=== PATIENT | female | born 1950 | race Caucasian/White ===

== ENCOUNTER 2022-01-27 13:35 | Outpatient (RCR) | payer MEDICARE, BC, SELFPAY | END 2022-01-28 23:59 | disposition home or self-care (01) | LOC: CCIC 13:35 | PROVIDERS: PCP Family Medicine; Visit Provider Internal Medicine Hematology & Oncology | DX: C50.912 Malignant neoplasm of unspecified site of left female breast (principal); Z17.0 Estrogen receptor positive status [ER+]; Z79.810 Long term (current) use of selective estrogen receptor modulators (SERMs); M81.0 Age-related osteoporosis without current pathological fracture | CPT/HCPCS: 99212; 99214 ==

== ENCOUNTER 2022-06-01 11:17 | Outpatient (RCR) | payer MEDICARE, BC, SELFPAY ==
[2022-06-01 13:16] LABS: Ferritin* 64.6 ng/mL (11.1-264.0)
== END 2022-11-28 23:59 | disposition home or self-care (01) ==
LOC: CCIC 11:17
PROVIDERS: PCP Family Medicine; Visit Provider Internal Medicine Hematology & Oncology
DX: L65.9 Nonscarring hair loss, unspecified (principal); Z17.0 Estrogen receptor positive status [ER+]; Z79.810 Long term (current) use of selective estrogen receptor modulators (SERMs)
CPT/HCPCS: 36415; 82728; 84443; 99212; 99214

== ENCOUNTER 2022-06-08 10:46 | Outpatient (RCR) | payer MEDICARE, BC, SELFPAY ==
--- NOTE | 2022-06-08 12:20 | OT.OPLE ---
OT Outpatient Lymphedema Eval OT Outpatient Lymphedema Eval Start: 06/08/22 07:27 Freq: Status: Discharge Protocol: Document 06/08/22 07:28 AMB (Rec: 06/08/22 11:45 AMB [id number]) E-signed By Laurita Mitchell, OTR/L, CLT, HAND HEEL SEAT FITTER OT Outpatient Evaluation Details Type Type Eval Complexity Low OT OP Lymphedema Evaluation Insurance Information Insurance Information Medicare B Current Condition/Medical Diagnosis Referring Provider Ara Treatment Diagnosis Lymphedema left chest wall Date Of Onset 06/05/21 Medical Contraindications CA,Osteoporosis Current Work Status Current Work Status Retired Subjective Subjective Pt states she is returning today for an 12 month re- assessment and to review lymphedema education that she received at previous visits. Pt denies any symptoms of lymphedema and expresses how pleased she is with the outcomes. Pt states her scar is no longer causing any pain or swelling. Pt has recently had to reduce her dose of Tamoxifen as it was causing her to loose her hair, but otherwise she feels she is doing great. Medical History Medical History Cancer Treatment/Surgery Medical History Comments Pt is 71yo female referred to OT for lymphedema screening / surveillance and pt education following her 06/05/21 mastectomy. 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 Original diagnosis occured in May of 2021 as a result of findings from a mammogram. Current treatment plan includes tamoxifen. Pt was referred to OT secondary to scar tissue, axillary cording and some residual swelling on the chest wall. Pt will continue with annual mammogram for the right breast and will recheck with oncology prn. PMH includes osteoporosis, rosacea, raynaud's disease, PSH includes mastectomy and cornea transplant in August of 2016. 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 Surgical History Surgical History See above Medications Medications See chart Family History Family History of Lymphedema No Living Situation Current Living Situation Home With Spouse Or SO Exercise History Does Patient Exercise Regularly Yes Exercise Comments Pt enjoys walking and hiking. Pain Pain No Loss of Function/Strength/Mobility Loss Of Function/Strength/Mobility No Loss Of Function/Strength/Mobility Pt demonstrates AROM of BUE to Comments be WNL, 5/5 MMT BUE as well. Previous Treatment Previous Treatment For Swelling/ MLD,Compression Garment,Multi- Lymphedema Layer Compression Bandages, Exercise,Self Massage Previous Treatment/Current Home Program Compression, exercise, self MLD and scar mobilization. Compression History Does Patient Currently Wear Compression No During Daytime Does Patient Currently Wear Compression No At Night Current Swelling (Location/Pitting/Texture) Pitting Scale: 0 = No pitting 1+ Tissue returns to normal almost immediately 2+ Tissue returns after 15-30 seconds 3+ Tissue returns after 1-1/2 minutes 4+ Tissue returns after 2-3 minutes N/A Tissue no longer pits due to induration Tissue texture: Soft or indurated Clinical Presentation Area Initially, pt demonstrated lymphedema in her left chest wall, currently, lymphedema appears to have completely resolved, pt has not noted any swelling since her last visit in November. Staging Staging Stage 0 Assessment Assessment Pt was seen in OT for lymphedema of her left chest wall from July of 2021 through November of 2021 and received compression, MLD, scar mobilization and exercise . Pt is very pleased with the outcomes, has not noted swelling since. Pt returns today for final a re- assessment of her BUE and final visit of lymphedema surveillance program. Measurements were taken of BUE as follows: RUE LUE Met heads 19.0cm 18.3cm Palm 18.2 17.5 Wrist 16.0 15.8 10cm 16.2 16.0 20cm 21.6 20.6 30cm 19.8 19.3 40cm 22.0 21.8 50cm 23.5 23.5 Measurements are relatively unchanged and fairly symmetrical. No evidence of lymphedema present in either UE or chest wall. Incision is well healed, minimal adherence noted. Impairments Impairments Comments Initially, pt had significant swelling of her left anterior chest wall, this has resolved. Problem List Problem List Limited Knowledge of Lymphedema Treatment/Condition /Precautions,Limited Knowledge of Skin Care & Infection Precautions Patient Goals Patient Goals 1. Re-assessment and finalization of lymphedema surveillance program. This goal was met today. Treatment Plan Treatment Plan Evaluation Expected Frequency 1 visit Certification Certification I Certify That: Therapy Services Provided, Therapy Plan Established, Therapy Plan Reviewed Recertification Information Recertification Information Initial Certification Date 06/08/22 Recertification Due Date 06/09/22 Rehabilitation Potential Good Continued Plan of Care and Interventions Pt will continue with self monitoring and risk reduction practices. Provider Signature Shows Agreement With POC & Medical Necessity Physician Comment/Change Comment or Changes Physician NPI Number #
== END 2022-06-08 12:04 | disposition home or self-care (01) ==
PROVIDERS: PCP Family Medicine; Visit Provider Family Medicine
DX: I89.0 Lymphedema, not elsewhere classified (principal); Z51.89 Encounter for other specified aftercare
CPT/HCPCS: 97165

== ENCOUNTER 2022-11-15 14:43 | Outpatient (RCR) | payer MEDICARE, BC, SELFPAY | END 2023-05-14 23:59 | disposition home or self-care (01) | LOC: CCIC 14:43 | PROVIDERS: PCP Family Medicine; Visit Provider Internal Medicine Hematology & Oncology | DX: C50.912 Malignant neoplasm of unspecified site of left female breast (principal); Z17.0 Estrogen receptor positive status [ER+]; Z79.810 Long term (current) use of selective estrogen receptor modulators (SERMs); L65.9 Nonscarring hair loss, unspecified; M81.0 Age-related osteoporosis without current pathological fracture | CPT/HCPCS: 99212; 99214 ==

== ENCOUNTER 2023-07-18 07:35 | Outpatient (CLI) | payer MEDICARE, BC, SELFPAY ==
--- NOTE | 2023-07-18 07:45 | CRLHL7_ITS ---
For Patients: As a result of the Century Cures Act, medical imaging exams and procedure reports are released immediately into your electronic medical record. You may view this report before your referring provider. If you have questions, please contact your health care provider. DIGITAL DIAGNOSTIC RIGHT MAMMOGRAM USING TOMOSYNTHESIS AND COMPUTER-AIDED DETECTION INDICATION: 73-year-old female. History of LEFT-sided breast cancer. Prior LEFT mastectomy. Skin lesion central upper RIGHT breast for approximately 6 months at the 12 o`clock position. Follow-up. TECHNIQUE: CC and MLO views were obtained. This digital study was evaluated with the assistance of computer-aided detection. Digital breast tomosynthesis used in interpretation. COMPARISON: 05/08/2021. FINDINGS: Breast Composition: The breast is extremely dense, which limits the sensitivity of mammography. Benign vascular calcifications on the RIGHT. No evidence for suspicious microcalcifications, regions of architecture distortion, or dominant masses. No evidence for focal or diffuse skin thickening. Ultrasound is not recommended at this time. Reportedly the patient may undergo a skin biopsy. Upon visual inspection there is a very tiny reddish spot at the 12 o`clock position 3-4 cm above the nipple. There is no mammographic correlate. These findings were discussed briefly with the patient. IMPRESSION: Negative unilateral RIGHT breast mammogram. Annual mammography is recommended. The skin lesion should be managed as per dermatologic evaluation. BI-RADS Category 1: Negative A lay language report of this examination will be provided to the patient. Dictated by: Patricio Ruggiero MD @07/18/2023 8:46:01 AM jj/Dictated by: Patricio Ruggiero MD @ 07/18/2023 8:45:00 AM (Electronically Signed)
== END 2023-07-18 07:36 | disposition home or self-care (01) ==
LOC: MAMMO 07:36
PROVIDERS: PCP Family Medicine; Visit Provider Physician Assistant
DX: N64.9 Disorder of breast, unspecified (principal); Z85.3 Personal history of malignant neoplasm of breast
CPT/HCPCS: 77065; G0279

== ENCOUNTER 2023-12-14 15:00 | Outpatient (RCR) | payer MEDICARE, BC, SELFPAY | END 2023-12-17 23:59 | disposition home or self-care (01) | LOC: CCIC 15:00 | PROVIDERS: PCP Family Medicine; Visit Provider Internal Medicine Hematology & Oncology | DX: D05.12 Intraductal carcinoma in situ of left breast (principal); Z79.810 Long term (current) use of selective estrogen receptor modulators (SERMs); Z17.1 Estrogen receptor negative status [ER-]; Z90.12 Acquired absence of left breast and nipple; L98.9 Disorder of the skin and subcutaneous tissue, unspecified; L65.9 Nonscarring hair loss, unspecified | CPT/HCPCS: 99212; 99214; G0463 ==

== ENCOUNTER 2024-02-26 13:29 | Emergency (ER) | payer MEDICARE, BC, SELFPAY ==
[2024-02-26] VITALS (10 sets, daily range): BP systolic 79–116; BP diastolic 38–60; PULSE 55–61; RESP 18; TEMP 37.2; O2SAT 97–100; BMI 16.2
--- NOTE | 2024-02-26 13:47 | CRLHL7_ITS ---
For Patients: As a result of the Century Cures Act, medical imaging exams and procedure reports are released immediately into your electronic medical record. You may view this report before your referring provider. If you have questions, please contact your health care provider. INDICATION: Fall. TECHNIQUE: Three views left wrist. IMPRESSION: Mildly impacted dorsally angulated fracture of the distal radial metaphysis with probable extension into the joint in the lunate fossa. Less than 1 mm cortical step-off suggested articular cortex. Ulnar styloid fracture is slightly radially displaced. Osteo throughout its triscaphe joint and 1st carpometacarpal joint. Dictated by Tio Bello MD @ 02/26/2024 2:58:49 PM (Electronically Signed)
--- NOTE | 2024-02-26 13:56 | ED_ITS ---
HPI - General Adult General Chief complaint: Extremity Pain/Injury, Upper Stated complaint: fall, L wrist injury Time Seen by Provider: 02/26/24 13:29 Source: patient Mode of arrival: ambulatory Limitations: no limitations History of Present Illness HPI narrative: 73-year-old female coming in today complaining of wrist pain. Patient was out walking when she tripped and fell on an outstretched hand. She is complaining of pain in the lateral left wrist. She denies hitting her head or losing consciousness. The pain is making her feel lightheaded. Related Data Home Medications ?Medication ?Instructions ?Recorded ?Confirmed acetaminophen 500 mg tablet 500 - 1,000 mg PO Q6H PRN 01/25/22 02/26/24 azelaic acid 15 % topical foam 1 topical BID 01/25/22 12/14/23 cyanocobalamin (vitamin B-12) 1,000 mcg IM ONCE 01/25/22 02/26/24 1,000 mcg/mL injection solution prednisolone acetate 1 % eye ml ophthalmic (eye) 01/25/22 12/14/23 drops,suspension cholecalciferol (vitamin D3) 125 2,000 unit PO QDAY 01/27/22 02/26/24 mcg (5,000 unit) capsule calcium carbonate 600 mg PO QDAY 06/20/23 02/26/24 escitalopram oxalate 5 mg tablet 5 mg PO QDAY 06/20/23 02/26/24 (Lexapro) Previous Rx's ?Medication ?Instructions ?Recorded tamoxifen 10 mg tablet 5 mg (1/2 x 10 mg) PO QDAY #90 tabs 01/30/24 Allergies Allergy/AdvReac Type Severity Reaction Status Date / Time No Known Drug Allergies Allergy Verified 12/14/23 11:58 Review of Systems Status of ROS: Reports: 6 or more systems reviewed and unremarkable except as noted in History and below [facility] Medical History Osteoporosis ?M81.0 - Age-related osteoporosis without current pathological fracture (ICD- 10) Surgical History H/O left mastectomy ?Z90.12 - Acquired absence of left breast and nipple (ICD-10) Social History Smoking Status: Never smoker How often do you have a drink containing alcohol: never AUDIT-C Alcohol total score: 0 Non-prescribed substance use: denies use Exam Narrative: Exam Narrative: Well-nourished well-developed patient in no acute distress. Alert and oriented. Answers questions appropriately. Mood and affect are appropriate. Thoughts are goal oriented and rational. No tangential or magical thinking noted. Patient speaks in full sentences without needing to catch her breath. HEENT: Normocephalic atraumatic. Pupils are equally round reactive to light. Extraocular muscles are intact. Conjunctivae are moist without any icterus noted. Moist mucous membranes. Extremities: The patient has a slightly swollen left wrist with pain over the lateral aspect. She has a normal radial pulse. Normal capillary refill. No br oken skin. No significant deformity noted. Const: Vital Signs, click to edit/add: Vital Signs - 24 hr 02/26/24 13:38 02/26/24 14:22 02/26/24 14:30 Temperature 98.9 F Pulse Rate 58 L 59 L Pulse Rate [Left P ulse Oximeter] 55 L Respiratory Rate 18 Blood Pressure [Ri ght Upper Arm] 79/38 L Pulse Oximetry 100 99 98 Oxygen Delivery Me thod Room Air 02/26/24 14:45 02/26/24 15:00 02/26/24 15:15 Temperature Pulse Rate 61 58 L 58 L Pulse Rate [Left P ulse Oximeter] Respiratory Rate Blood Pressure [Ri ght Upper Arm] Pulse Oximetry 99 99 100 Oxygen Delivery Me thod Course Course ED Course: Xray ordered And showed: Mildly impacted dorsally angulated fracture of the distal radial metaphysis with probable extension into the joint in the lunate fossa. Less than 1 mm cortical step-off suggested articular cortex. Ulnar styloid fracture is slightly radially displaced. Osteo throughout its triscaphe joint and 1st carpometacarpal joint. Patient placed in a sugar-tong splint and sling. Will follow up with Ortho next week. Consult was done with Daylin Muller: in agreement with this plan. Blood pressures were low all she was here. Blood pressure on discharge was 116/60. Patient states that her blood pressure generally run average to low. She is not feeling dizzy or lightheaded. Vital Signs Vital signs: Initial Vital Signs Temperature 98.9 F 02/26/24 13:38 Temperature Source Temporal Artery Scan 02/26/24 13:38 Pulse Rate 55 L 02/26/24 13:38 Pulse Rhythm Regular 02/26/24 13:38 Pulse Strength 3+ Normal 02/26/24 13:38 Respiratory Rate 18 02/26/24 13:38 Blood Pressure 79/38 L 02/26/24 13:38 Blood Pressure Mean 51 L 02/26/24 13:38 Blood Pressure Position Sitting 02/26/24 13:38 Pulse Oximetry 100 02/26/24 13:38 Oxygen Delivery Method Room Air 02/26/24 13:38 Vital Signs Temperature 98.9 F 02/26/24 13:38 Pulse Rate 55 L 02/26/24 13:38 Respiratory Rate 18 02/26/24 13:38 Blood Pressure 79/38 L 02/26/24 13:38 Pulse Oximetry 100 02/26/24 13:38 Oxygen Delivery Method Room Air 02/26/24 13:38 Temperature 98.9 F 02/26/24 13:38 Pulse Rate 58 L 02/26/24 15:15 Respiratory Rate 18 02/26/24 13:38 Blood Pressure 79/38 L 02/26/24 13:38 Pulse Oximetry 100 02/26/24 15:15 Oxygen Delivery Method Room Air 02/26/24 13:38 Medications Administered Medications: Discontinued Medications Generic Name Dose Route Start Last Admin Trade Name Freq PRN Reason Stop Dose Admin Hydrocodone Bitart/Acetaminophen 1 tab 02/26/24 14:34 02/26/24 14:43 Hydrocodone-Acetamin 5-325 Mg 1 Tab PO 02/26/24 14:35 1 tab ONCE ONE Administration Medical Decision Making MDM Narrative Medical decision making narrative: Distal radial and ulnar fracture. Treatment per above. Imaging Data X-ray wrist: Attestation: I have reviewed the pertinent imaging results. Radiologist's impression: INDICATION: Fall. TECHNIQUE: Three views left wrist. IMPRESSION: Mildly impacted dorsally angulated fracture of the distal radial metaphysis with probable extension into the joint in the lunate fossa. Less than 1 mm cortical step-off suggested articular cortex. Ulnar styloid fracture is slightly radially displaced. Osteo throughout its triscaphe joint and 1st carpometacarpal joint. Discharge Plan Discharge Clinical Impression: Traumatic closed displaced fracture of distal end of left radius and ulna Patient Disposition: Home, Self-Care Condition: Stable Additional Instructions: Follow-up with Orthopedics this coming week. Leave splint on at all times. [place] sent to [facility]. The pain medication you will receive does contain Tylenol (acetaminophen). Do not take more than 3000 mg of acetaminophen per day. Prescriptions: No Action prednisolone acetate 1 % drops,suspension ophthalmic (eye) Patient Comments: SHAKE LIQUID AND INSTILL 1 DROP IN LEFT EYE EVERY DAY azelaic acid 15 % foam 1 topical BID cyanocobalamin (vitamin B-12) 1,000 mcg/mL solution 1,000 mcg IM ONCE acetaminophen 500 mg tablet 500 - 1,000 mg PO Q6H PRN Rx Instructions: NO MORE THAN 4000 MG/DAY cholecalciferol (vitamin D3) 125 mcg (5,000 unit) capsule 2,000 unit PO QDAY calcium carbonate 600 mg calcium (1,500 mg) tablet 600 mg PO QDAY escitalopram oxalate [Lexapro] 5 mg tablet 5 mg PO QDAY tamoxifen 10 mg tablet 5 mg PO QDAY Qty: 90 3RF Follow Up/Referrals: Gloria Bullock MD [Primary Care Provider] - Stand Alone Forms: [employer]th Info Instructions
[2024-02-26] MEDS: HYDROCODONE-ACETAMIN 5-325 MG 1 TAB PO (14:43)
== END 2024-02-26 16:05 | disposition home or self-care (01) ==
PROVIDERS: Emergency Provider Family Medicine; PCP Family Medicine
DX: S52.592A Other fractures of lower end of left radius, initial encounter for closed fracture (principal); S52.692A Other fracture of lower end of left ulna, initial encounter for closed fracture; W01.0XXA Fall on same level from slipping, tripping and stumbling without subsequent striking against object, initial encounter
CPT/HCPCS: 73110; 99283; 99284; A9270

== ENCOUNTER 2024-03-02 06:45 | Day surgery (SDC) | payer MEDICARE, BC, SELFPAY ==
[2024-03-02] VITALS (9 sets, daily range): BP systolic 113–132; BP diastolic 59–69; PULSE 53–60; RESP 16; TEMP 16.1–36.7; O2SAT 99–100; BMI 16.7
[2024-03-02] MEDS: LACTATED RINGERS 1000 ML 1,000 ML 100 ML IV (06:50)
--- NOTE | 2024-03-02 07:03 | W.PM.H&PU ---
History & Physical Update History & Physical Update H&P Reviewed and patient assessed: No changes noted
[2024-03-02] MEDS: SODIUM CHLORIDE 0.9 % (FLUSH) 10 ML SYRINGE IVF (07:19)
[2024-03-02] MEDS: fentaNYL 100 MCG/2 ML inj IVP (07:20)
[2024-03-02] MEDS: MIDAZOLAM HCL 1 MG/ML inj IVP (07:20)
--- NOTE | 2024-03-02 07:28 | PM.ORPRC ---
Procedure Note Date of procedure: 03/02/24 Procedure: PREOPERATIVE DIAGNOSES: 1. Left distal radius fracture (intraarticular with comminution and dorsal angulation/displacement) POSTOPERATIVE DIAGNOSES: 1. Left distal radius fracture (intraarticular with comminution and dorsal angulation/displacemen NAME OF OPERATION: 1. Left distal radius open reduction with internal fixation of intraarticular fracture (3+ parts) SURGEON: Butch Barton MD SENIOR CONSTRUCTION PROJECT MANAGER: Grabiel Gallagher P.A.-C. An executive assistant to general counsel was critical for this case to aide in patient positioning, limb manipulation, tissue retraction, closure, and splinting. ANESTHESIA: Regional block with MAC IMPLANTS: [employer] DVR Crosslock distal radius locking plate with 2.7mm locking screws, 2.7 mm nonlocking screws, and 2.2 mm locking smooth pegs. TOURNIQUET: 46 minutes at 250 mmHg. INDICATIONS: The patient is a pleasant, 73-year-old female who sustained a left wrist injury after a fall. They had difficulty with use of the extremity and deformity. Workup included xrays which revealed displaced, intra-articular, unstable fracture. Given these findings, surgery was recommended to stablize the fracture and allow healing in a more anatomic position. Prior to surgery the risks and benefits of the procedure were discussed with patient all questions were answered and informed consent was obtained. FINDINGS: Closed, comminuted, displaced, dorsally angulated, intra-articular distal radius fracture. PROCEDURE: Following a thorough discussion of risks, benefits, and alternatives, consent was obtained and the operative extremity was marked. A regional nerve block was performed by anesthesia staff. The patient was then brought to the operating room and placed supine on the operating table. Induction of anesthesia was achieved and patient was provided with 1 g IV Ancef preoperatively for prophylaxis. The operative extremity was prepped and draped in usual sterile fashion. A surgical time-out was performed confirming patient identity surgical site and surgical procedure. The operative extremity was exsanguinated and the tourniquet inflated to 250 mmHg. A longitudinal incision was made overlying the FCR tendon. Sharp incision through skin and subcutaneous tissue allowed identification of the FCR tendon. The superficial sheath was sharply divided, the tendon retracted ulnarly, and the deep fascial sheath also released. The FPL was retracted ulnarly and the pronator quadratus was sharply released its distal and radial borders and subperiosteally elevated. The fracture was identified. Fracture was reduced in appropriate size plate was selected. Temporary stabilization allowed C-arm fluoroscopy to confirm proper fracture reduction and plate positioning. The oblong hole was filled with a nonlocking screw followed by multiple distal locking screws and pegs being careful to keep these in subchondral bone and extraarticular. Finally, the remaining proximal shaft screws were drilled and placed. Fluoroscopic imaging confirmed appropriate position of plate and screws and near anatomic alignment of the fracture. At this stage, the wound was thoroughly irrigated with normal saline. Closure performed with 3-0 Vicryl for the pronator quadratus the tourniquet was then released and electrocautery was used to achieve hemostasis. Closure was then completed with 3-0 Vicryl for the subcutaneous, and 3-0 Monocryl for subcuticular closure. Sterile dressings were applied along with a short-arm volar/dorsal splint. The patient was awoken from anesthesia and transferred to PACU in stable condition. PLAN: 1. Elevate operative extremity. 2. Ice, acetominphen or ibuprofen PRN. 3. [place] for pain as needed for more severe pain 4. Follow up in Orthopedic Clinic in 10-14 days for wound check and splint removal.
--- NOTE | 2024-03-02 07:31 | SUR.PREOP ---
TIME?OUT:?0720 PT/RN/MDA?VERIFICATION?OF?SURGICAL?SITE Left Wrist,?PROCEDURE Nerve Block,?AND?CONSENT OBTAINED?PRIOR?TO?INVASIVE?PROCEDURE.
--- NOTE | 2024-03-02 07:54 | W.PM.NB ---
Nerve Block Nerve Block Time Seen by Provider: 07:15 Date Seen: 03/02/24 Type of block requested by surgeon for post-operative analgesia: axillary Side: left Time out performed: Yes Verification of patient name: Yes Verification of date of : Yes Site marking: site marked Name of person performing procedure: sukhi payan Continuous monitoring Was continuous monitoring of O2 sat, B/P, monitoring tech, recorded every 15 minutes?: Yes Procedure Checklist: sterile prep, needles and gloves Ultrasound guided. Images saved: Yes Medications given in 5ml increments after negative aspiration: Ropivicaine %: 0.5 mL: 20 Decadron (mg): 10 Precedex (mcg): 15 Patient tolerated procedure well: Yes Block Charges Block Charge (with Pro Fee): Axillary Nerve Use of Ultrasound Machine for Block: Yes- US Guidance/pain block
--- NOTE | 2024-03-02 08:00 | CRLHL7_ITS ---
For Patients: As a result of the Cures Act, medical imaging exams and procedure reports are released immediately into your electronic medical record. You may view this report before your referring provider. If you have questions, please contact your health care provider. Indication: Wrist fracture Technique: Three fluoroscopic images of the left wrist. Fluoroscopic time 11.1 seconds. IMPRESSION: Fluoroscopic guidance for open reduction internal fixation of distal radial metaphyseal fracture. Dictated by Zack Cox MD @ 03/02/2024 12:14:39 PM (Electronically Signed)
[2024-03-02] MEDS: CEFAZOLIN 2 GM INJ IVP (08:06)
--- NOTE | 2024-03-02 09:39 | W.ANESCHARGE ---
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
== END 2024-03-02 10:42 | disposition home or self-care (01) ==
LOC: OR 06:46
PROVIDERS: PCP Family Medicine; Visit Provider Orthopaedic Surgery
PROC: (CPT 25575; principal; 2024-03-02 08:00)
DX: S52.572A Other intraarticular fracture of lower end of left radius, initial encounter for closed fracture (principal); G89.18 Other acute postprocedural pain
CPT/HCPCS: 25609; 01830; 64417; 73100; 73110; 76000; 76942; 99100; A4580; C1713; J0690; J1100; J2250; J2704; J2795; J3010; J7120

== ENCOUNTER 2024-05-28 10:30 | Outpatient (RCR) | payer MEDICARE, BC, SELFPAY ==
--- NOTE | 2024-03-13 17:26 | OT.OPOE ---
OT Outpatient Ortho Eval OT Outpatient Ortho Eval* Start: 03/13/24 09:27 Freq: Status: Active Protocol: Document 03/13/24 09:27 LCN (Rec: 03/13/24 17:21 LCN [id number]) E-signed By Page Toussaint, OTR/L, CLT OT OP Ortho Eval Details Complexity Complexity Low Insurance Information Insurance Information Blue Cross/Blue Shield, Medicare B Outpatient History/Precautions Current Condition/Medical Diagnosis Referring Provider Jacinta Lima PA-C Medical Diagnoses S/P ORIF of Distal L radius Treatment Diagnosis L wrist pain, stiffness and weakness Date of Onset 03/02/24 Precautions Lifting Restrictions Other Precautions 03/02/24-- Splinting 23 of 24 hrs through POD week 6 (~), <3# lifting Medical Conditions DM,CA,Arthritis,Osteoporosis, Latex Allergy Other Conditions Hand Arthritis with L CMC squaring, heberden's nodes at L IP, tender at MP. 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 R wrist fracturein 1984 Medical/Functional History Medical History Reviewed Yes Prior Level of Function/Mobility Pt and her live locally in a 3 story home. 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 still working in [employer] at [employer]. Enjoys hiking, reading, watching shows. FItness at [employer]; normally does aquatic exercise and circuit training classes. Social History Employment Status Retired Current Occupation [employer] volunteer Critical Job Demands Pull,Lift,Overhead Reach Ortho Subjective Subjective Subjective Mansi Bandar is an active 73 y/o female who had a mechanical fall in her basement, turning quickly in a tight space and fell completely into L hand. Had a ORIF repair on 03/02/[address] Barton 03/02/24 and moved into Wrist brace 03/12/24, with sling for L shoulder when out in community. Pain Assessment Pain Pain Yes Pain Comments 2/10 at the L distal radius 80 % of the time, has had small rises to 6/10 if she bumps it, or moves into end ROM of pronation. Range of Motion and Strength Wrist Range of Motion and Strength Wrist Range of Motion and Strength B SH and elbow planes WNL, no pain. AROM of L WR EX 15 of 70. WR FL [address] 15 of 20. UD 18 of 40. Supination 45 of 90 . Pronation 90 of 110. Composite digit flexion to 3-3 .5 cm finger tips to distal palmar crease. Pt gets light headed during LLPS/stretching in OT. Needed two rest breaks during genle Rom trials in session. Edema measures 17.3 cm at wrist crease and 17.7 cm at web/MCP. OA changes in L CMC w squaring and Chen's node of IP. Tender at MP after casting, w some numbness at back side of thumb. Hand Pinch/Precast Concrete Products Installer Strength Hand Pinch/Precast Concrete Products Installer Strength Hand Pinch/Precast Concrete Products Installer Strength Left Hand,Right Hand Left Hand Precast Concrete Products Installer Strength Position 1 in Elbow 0 Flexion (lbs) Right Hand Precast Concrete Products Installer Strength Position 1 in Elbow 52 Flexion (lbs) Lateral Pinch Strength (lbs) 12 Three Point Pinch (lbs) 15 OT Problems Problems Problems Decreased Strength,Decreased Range of Motion,Decreased Dexterity,Pain,Lifting, Gripping,Pinching Other Problems Opening Containers,Dressing, Fasteners Patient Potential Excellent Assessment Assessment Assessment With pt's L wrist stiffness, ROM and strength loss after her distal radius fracture with ORIF repair, pt would benefit from skilled OT to support return to 2 handed tasks with higher level IADL. Occupational Therapy Treatment Plan - OP Potential Rehabilitation Potential Excellent Barriers Barriers to goal attainment bone density changes, OA. Set Goals Goals Set with Patient Yes Goals Goals In 8 weeks, pt will demonstrate:? 1) Decreased pn to <2/10 80% of the time with sustained gripping, carrying groceries, reading books, UB strengthening circuits and reshelving canned items overhead. 2) I HEP for stretching, gradual strengthening and self mgmt strategies. 3) improved L body trimmer upholsterer strength to 40# and pinch to 10# with L thumb/wrist pain < 1/10. 4)??Pt to be fit with functional bracing (for L CMC, wrist, if needed) and use adaptive strategies to protect joint integrity to support less pain with ADL. Treatment Plan Treatment Plan Evaluation,Edema Control,Joint Mobilization,Manual Therapy, Splinting,Therapeutic Exercise ,Therapeutic Activities,Self Care/Home Management,Education Expected Frequency 1-2x Week Expected Duration 8-10 Weeks Home Program Home Program Home Program Initiated Home Program Specifics AROM holds at end ROM for WR EX, FL Supination, composite flexion, hook to rolled fist planes, 10 second holds x 5 reps each 3-5 x/day. Small< 3 # tasks like wiping counters, holding toothbrush. Trial of icing if she is achy Pt estimates she has poor cold tolerance) Certification Certification Statement I Certify That: Therapy Services Provided Certification Information Clinic ID # [id number] Initial Certification Date 03/13/24 Recertification Due Date 06/11/24 Provider Signature Required Yes Provider Signature Shows Agreement With POC & Medical Necessity Physician NPI Number Write NPI# Here Physician Comment/Change Comment or Changes Physician Signature & Date Requested Please Sign/Date Here
--- NOTE | 2024-04-09 16:44 | OT.OPODN ---
OT Outpatient Ortho Daily Note OT Outpatient Ortho Daily Note* Start: 03/13/24 09:27 Freq: Status: Active Protocol: Document 04/09/24 16:33 LCN (Rec: 04/09/24 16:43 LCN [id number]) E-signed By Page Toussaint, OTR/L, CLT Type of Note Type of Note Type of Note Daily Note,Note to MD,Recert/ Progress Note Visit Number 5 Insurance Information Insurance Information Blue Cross/Blue Shield, Medicare B Outpatient History/Precautions Current Condition/Medical Diagnosis Referring Provider Jacinta Lima PA-C Medical Diagnoses S/P ORIF of Distal L radius Treatment Diagnosis L wrist pain, stiffness and weakness Date of Onset 03/02/24 Precautions Lifting Restrictions Other Precautions 03/02/24-- Splinting 23 of 24 hrs through POD week 6 (~), <3# lifting Medical Conditions DM,CA,Arthritis,Osteoporosis, Latex Allergy Other Conditions Hand Arthritis with L CMC squaring, heberden's nodes at L IP, tender at MP. 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 R wrist fracturein 1984 Medical/Functional History Medical History Reviewed Yes Prior Level of Function/Mobility Pt and her live locally in a 3 story home. 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 still working in [employer] Program at [employer]. Enjoys hiking, reading, watching shows. FItness at [facility]; normally does aquatic exercise and circuit training classes. THey provide some care to her ' s mom near [place], [place]. Social History Employment Status Retired Current Occupation [employer] volunteer Critical Job Demands Pull,Lift,Overhead Reach Ortho Subjective Subjective Subjective Pt has had some short bouts of finger tip numbness at night while wearing splint, able to shake off quickly. ( Tinel's, Durkan's compression test x 60 sec is (-). Hs some achiness as she uses L hand more with ligtht daily task. Doing very well holding back from lifting > 3#. Mansi Portillo is an active 73 y/o female who had a mechanical fall in her basement, turning quickly in a tight space and fell completely into L hand. Had a ORIF repair on 03/02/[address] Barton 03/02/24 and moved into Wrist brace 03/12/24, with sling for L shoulder when out in community. Pain Assessment Pain Pain Yes Pain Comments -- 2/10 dorsoradial during PROM WR EX. 03/21/24: Very minimal pain today 1/10 on the L wrist/ extensor side of the forearm 03/19/24 2/10 at the L distal radius 80 % of the time, has had small rises to 6/10 if she bumps it, or moves into end ROM of pronation. OT OP Daily Ortho Note/Assessment Therapeutic Exercise Therapeutic Exercise Minutes (minutes) 14 Therapeutic Exercise Comments HEP upgraded AAROM with 70% pressure for wrist extension and wrist flexion 30 sec holds x 3 reps 2-3 x/day. Today added (light resistance) Theraputty watershed engineer s, pierce pinch and alternating 2 pt pinch ( watching O tip to tip mechanics to support better motion with L TH OA. Practiced these in session with patient tolerating well (was tender with pierce pinch, pt monitor). Manual Therapy Manual Therapy Minutes (minutes) 28 Manual Therapy Comments LLPS of all wrist planes WR EX, FL RD, UD, Supination, digit flexion after STM of forearm muscle bulk, intrinsic / digit extensors, carpal row glides, traction of L MF + prox carpal row glides, palmar crease stretches and opening palmar webspace. L hand/wrist/forearm (avoiding the flexor side scar line) Soft Tissue/Manual Treatment with use of IASTMI will result in an increase in fibroblast proliferation and activation, better tissue organization and fiber alignment in tendons and ligaments, build a stronger and stiffer ligaments , increased rate of healing for ligaments, increased blood perfusion to the tissue, and results in stem cells mobilized into circulation which allows for greater pain reduction and faster healing times. Explained effects and benefits of Graston Technique therapy including the potential for post treatment soreness and bruising to occur . Self-Care/Home Management Self-Care/Home Management Minutes ( 0 minutes) Self-Care/Home Management Comments . Splinting Splinting Comments Wearing velcro wrist brace through ~04/10/24 (POD 6 weeks ). Total Occupational Therapy Time Occupational Therapy Minutes 42 Home Program Home Program Home Program Revised,Compliant Home Program Specifics 03/30/24-- light blue putty: watershed engineer, 2 pt pinch, pierce pinch 03/21/24--Added light blue ( light resistance) theraputty squeezes in 3 positions ( Neutral, supinated and pronated). 03/19/24-- AAROM w 30% pressure for WR FL, EX. 03/13/24--AROM holds at end ROM for WR EX, FL Supination, composite flexion, hook to rolled fist planes, 10 second holds x 5 reps each 3-5 x/day. Small< 3# tasks like wiping counters, holding toothbrush. Trial of icing if she is achy Pt estimates she has poor cold tolerance) Range of Motion and Strength Wrist Range of Motion and Strength Wrist Range of Motion and Strength 04/09/24-- AROM WR EX to 35 with stretchy end feel to 55 of 70 AAROM. WR FL to 60 AROM and 75 AAROM. Supination to 85 of 90. FUll hand closure into fiist ( ( limited only by OA changes in digits. From 03/13/24 EVAL--B SH and elbow planes WNL, no pain. AROM of L WR EX 15 of 70. WR FL [address] 15 of 20. UD 18 of 40. Supination 45 of 90 . Pronation 90 of 110. Composite digit flexion to 3-3 .5 cm finger tips to distal palmar crease. Pt gets light headed during LLPS/stretching in OT. Needed two rest breaks during genle Rom trials in session. Edema measures 17.3 cm at wrist crease and 17.7 cm at web/MCP. OA changes in L CMC w squaring and Chen's node of IP. Tender at MP after casting, w some numbness at back side of thumb. Goniometric Comments Goniometric Comments Goniometric Comments 03/30/24-- Post OT session, AAROM WR EX to 47 of 70, WR FL to 62 of 80. UD to 40 of 45 (dorsal radial ache). RD 20- 25. 03/19/24-- Post OT session, WR EX to 25 of 70, WR FL to 62 of 80. UD to 35 of 45. Composite digit flexion to 2.0 cm ( where .5 -1 cm is WNL, per pt's finger OA changes). Hand Pinch/System Engineer Strength Hand Pinch/System Engineer Strength Hand Pinch/System Engineer Strength Left Hand,Right Hand Left Hand System Engineer Strength Position 1 in Elbow 0 Flexion (lbs) Right Hand System Engineer Strength Position 1 in Elbow 52 Flexion (lbs) Lateral Pinch Strength (lbs) 12 Three Point Pinch (lbs) 15 Comments Comments 04/09/24-- COmpleted gentel dynamometer/tensiometer testing, keeping pain uner 2-3 /10. L System Engineer is 25#, no pain. Weightbearing/Press down testing into table top/ dynamometer is 15#, no pain. L pierce pinch is 5# (wih 3/10 pain at Th MP joint/OA changes .) 3 pt pinch is 9# (with 1-2 /10 pain at MP). OT Objective Data Hand Hand Dominance Right Upper Extremity Special Tests Median Nerve-Carpal Tunnel Wrist Tinel Test Negative Left Durkan's Test Negative Left OT Problems Problems Problems Decreased Strength,Decreased Range of Motion,Decreased Dexterity,Pain,Lifting, Gripping,Pinching Other Problems Opening Containers,Dressing, Fasteners Patient Potential Excellent Assessment Assessment Assessment Pt progressing well with wrist motion, encouraging pt to use her L hand more for small <3 # tasks. Sees 04/16/24 With pt's L wrist stiffness, ROM and strength loss after her distal radius fracture with ORIF repair, pt would benefit from skilled OT to support return to 2 handed tasks with higher level IADL. Occupational Therapy Treatment Plan - OP Potential Rehabilitation Potential Excellent Barriers Barriers to goal attainment bone density changes, OA. Set Goals Goals Set with Patient Yes Goals Goals In 8 weeks, pt will demonstrate:? 1) Decreased pn to <2/10 80% of the time with sustained gripping, carrying groceries, reading books, UB strengthening circuits and reshelving canned items overhead. -progressing, continue 2) I HEP for stretching, gradual strengthening and self mgmt strategies. progressing, continue 3) improved L watershed engineer strength to 40# and pinch to 10# with L thumb/wrist pain < 1/10. progressing, continue 4)??Pt to be fit with functional bracing (for L CMC, wrist, if needed) and use adaptive strategies to protect joint integrity to support less pain with ADL. progressing, continue Treatment Plan Treatment Plan Evaluation,Edema Control,Joint Mobilization,Manual Therapy, Splinting,Therapeutic Exercise ,Therapeutic Activities,Self Care/Home Management,Education Expected Frequency 1-2x Week Expected Duration 8-10 Weeks Occupational Therapy Billing Units Treatment Minutes Timed Treatment Minutes 42 Total Treatment Minutes 42 Billing Units Manual Therapy 3 Certification Statement Certification Statement I Certify That: Therapy Services Provided, Therapy Plan Established, Therapy Plan Reviewed
--- NOTE | 2024-05-22 10:44 | OT.OPODN ---
OT Outpatient Ortho Daily Note OT Outpatient Ortho Daily Note* Start: 03/13/24 09:27 Freq: Status: Active Protocol: Document 05/22/24 08:54 LCN (Rec: 05/22/24 10:43 LCN [id number]) E-signed By Page Toussaint, OTR/L, CLT Type of Note Type of Note Type of Note Daily Note,Note to MD Visit Number 9 Insurance Information Insurance Information Blue Cross/Blue Shield, Medicare B Outpatient History/Precautions Current Condition/Medical Diagnosis Referring Provider Jacinta Lima PA-C Medical Diagnoses S/P ORIF of Distal L radius Treatment Diagnosis L wrist pain, stiffness and weakness Date of Onset 03/02/24 Precautions Lifting Restrictions Other Precautions 03/02/24-- Splinting 23 of 24 hrs through POD week 6 (~), <3# lifting Medical Conditions DM,CA,Arthritis,Osteoporosis, Latex Allergy Other Conditions Hand Arthritis with L CMC squaring, heberden's nodes at L IP, tender at MP. 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 R wrist fracturein 1984 Medical/Functional History Medical History Reviewed Yes Prior Level of Function/Mobility Pt and her live locally in a 3 story home. 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 Enjoys hiking, reading, watching shows. FItness at [facility]; normally does aquatic exercise and circuit training classes. THey provide some care to her ' s mom near [place], [place]. Social History Employment Status Retired Current Occupation [employer] ethority volunteer Critical Job Demands Pull,Lift,Overhead Reach Ortho Subjective Subjective Subjective Pt's rash on forearm, skin is responding to vaseline/ low ph moisturizer with heavy application at NOC and silicone gel padding at night ( Superior margin is silver, flatter, distal 7/8 of incision still raised. Very minimal numbness in her L hand , tendon glides helped work that out. Using L wrist with slightly compensation vice president weights during fitness circuit, but no pain, good form. Wrist EX ROM is 55 AROMand 65 PROM B. Full supination B . Mansi Portillo is an active 73 y/o female who had a mechanical fall in her basement, turning quickly in a tight space and fell completely into L hand. Had a ORIF repair on 03/02/[address] Barton 03/02/24 and moved into Wrist brace 03/12/24, with sling for L shoulder when out in community. Pain Assessment Pain Pain No Pain Comments 05/07/24: No pain at start of session today. -- 2/10 dorsoradial during PROM WR EX. 03/21/24: Very minimal pain today 1/10 on the L wrist/ extensor side of the forearm 03/19/24 2/10 at the L distal radius 80 % of the time, has had small rises to 6/10 if she bumps it, or moves into end ROM of pronation. OT OP Daily Ortho Note/Assessment Therapeutic Exercise Therapeutic Exercise Minutes (minutes) 3 Therapeutic Exercise Comments Upgraded HEp to using Red therapy band, increase to 2 sets of 10 as able then 15 + 15 reps for building endurance . Therapeutic Activity Therapeutic Activity Minutes (minutes) 5 Therapeutic Activity Comments Introduced to PUSH CMC stabilizer for L hand size Medium was good fit on R hand, issued ordering info. Sees ortho this week. OTR recommends pt to use during heavy tool use tasks or on days when more achy at CMC. ( Today no pn with 11# 3 pt pinch L and 14# Rno pain. Feels less pressure i R CMC base during splint use). Manual Therapy Manual Therapy Minutes (minutes) 25 Manual Therapy Comments LLPS of all wrist planes WR EX, FL RD, UD, Supination, digit flexion after STM of forearm muscle bulk, intrinsic / digit extensors, carpal row glides, traction of L MF + prox carpal row glides, palmar crease stretches and opening palmar webspace. L hand/wrist/forearm scar massage in circular patterns over the incision line in sets of 10 on both sides, also introduced pinch and lift with flossing motions with ground crew lines person/ open. Soft Tissue/Manual Treatment with use of IASTMI will result in an increase in fibroblast proliferation and activation, better tissue organization and fiber alignment in tendons and ligaments, build a stronger and stiffer ligaments, increased rate of healing for ligaments, increased blood perfusion to the tissue, and results in stem cells mobilized into circulation which allows for greater pain reduction and faster healing times. Splinting Splinting Comments 05/22/24-- Introduced to PUSH CMC stabilizer for L hand size Medium was good fit on R hand , issued ordering info. Wore velcro wrist brace through ~04/10/24 (POD 6 weeks ). Total Occupational Therapy Time Occupational Therapy Minutes 33 Home Program Home Program Home Program Revised,Compliant Home Program Specifics 05/22/24-- Red band upgrade for all wrist planes. 04/30/24-- Green putty upgrade. Yellow band for WR EX/FL/RD, UD. Tendon glides 04/16/24-- turquoise putty and weight bearing wall push ups. 03/30/24-- light blue putty: ground crew lines person, 2 pt pinch, roberts pinch 03/21/24--Added light blue ( light resistance) theraputty squeezes in 3 positions ( Neutral, supinated and pronated). 03/19/24-- AAROM w 30% pressure for WR FL, EX. 03/13/24--AROM holds at end ROM for WR EX, FL Supination, composite flexion, hook to rolled fist planes, 10 second holds x 5 reps each 3-5 x/day. Small< 3# tasks like wiping counters, holding toothbrush. Trial of icing if she is achy Pt estimates she has poor cold tolerance) Range of Motion and Strength Wrist Range of Motion and Strength Wrist Range of Motion and Strength 05/22/24-- 65 of 70 AAROM WR EX. 04/30/24-- AROM WR EX to 55 with stretchy end feel to 60 of 70 AAROM. WR FL to [address], UD, supination WNL. 04/16/24-- AAROM WR EX to 50 with stretchy end feel to 55 of 70 AAROM. WR FL to 70 AROM and 75 AAROM. Supination to 90 of 90. 04/09/24-- AROM WR EX to 35 with stretchy end feel to 55 of 70 AAROM. WR FL to 60 AROM and 75 AAROM. Supination to 85 of 90. FUll hand closure into fist ( ( limited only by OA changes in digits. From 03/13/24 EVAL--B SH and elbow planes WNL, no pain. AROM of L WR EX 15 of 70. WR FL [address] 15 of 20. UD 18 of 40. Supination 45 of 90 . Pronation 90 of 110. Composite digit flexion to 3-3 .5 cm finger tips to distal palmar crease. Pt gets light headed during LLPS/stretching in OT. Needed two rest breaks during genle Rom trials in session. Edema measures 17.3 cm at wrist crease and 17.7 cm at web/MCP. OA changes in L CMC w squaring and Chen's node of IP. Tender at MP after casting, w some numbness at back side of thumb. Goniometric Comments Goniometric Comments Goniometric Comments 03/30/24-- Post OT session, AAROM WR EX to 47 of 70, WR FL to 62 of 80. UD to 40 of 45 (dorsal radial ache). RD 20- 25. 03/19/24-- Post OT session, WR EX to 25 of 70, WR FL to 62 of 80. UD to 35 of 45. Composite digit flexion to 2.0 cm ( where .5 -1 cm is WNL, per pt's finger OA changes). Hand Pinch/Meat Products Demonstrator Strength Hand Pinch/Meat Products Demonstrator Strength Hand Pinch/Meat Products Demonstrator Strength Left Hand,Right Hand Left Hand Meat Products Demonstrator Strength Position 1 in Elbow 0 Flexion (lbs) Right Hand Meat Products Demonstrator Strength Position 1 in Elbow 52 Flexion (lbs) Lateral Pinch Strength (lbs) 12 Three Point Pinch (lbs) 15 Comments Comments 05/22/24-- R 3 pt 14#, L 11#, no pn. Less pressure in joint with PUSH brace/cmc support in place. 04/30/24-- L ground crew lines person improved to 36#, roberts pinch 7# (3/10 tender at CMC, as per baseline prior to ORIF) and 3 pt pinch is 11 . 04/16/24-- Meat Products Demonstrator 30#, Roberts 7#, 3 pt is 11# no pain. 04/09/24-- COmpleted [employer] dynamometer/tensiometer testing, keeping pain uner 2-3 /10. L Meat Products Demonstrator is 25#, no pain. Weightbearing/Press down testing into table top/ dynamometer is 15#, no pain. L roberts pinch is 5# (wih 3/10 pain at Th MP joint/OA changes .) 3 pt pinch is 9# (with 1-2 /10 pain at MP). OT Objective Data Hand Hand Dominance Right Upper Extremity Special Tests Median Nerve-Carpal Tunnel Wrist Tinel Test Negative Left Durkan's Test Negative Left OT Problems Problems Problems Decreased Strength,Decreased Range of Motion,Decreased Dexterity,Pain,Lifting, Gripping,Pinching Other Problems Opening Containers,Dressing, Fasteners Patient Potential Excellent Assessment Assessment Assessment Pt progressing steadily with wrist motion, encouraging pt to use her L hand more for small <10 # tasks, brace for heavier work like grocery shopping, heavy laundry. Doing well at the gym, slightly compensation vice president weights, using her L hand in all situations. Less numbness. CMC achy at times. Sees . With pt's L wrist stiffness, ROM and strength loss after her distal radius fracture with ORIF repair, pt would benefit from skilled OT to support return to 2 handed tasks with higher level IADL. Occupational Therapy Treatment Plan - OP Potential Rehabilitation Potential Excellent Barriers Barriers to goal attainment bone density changes, OA. Set Goals Goals Set with Patient Yes Goals Goals In 8 weeks, pt will demonstrate:? 1) Decreased pn to <2/10 80% of the time with sustained gripping, carrying groceries, reading books, UB strengthening circuits and reshelving canned items overhead. -GOAL MET 05/07/24 2) I HEP for stretching, gradual strengthening and self mgmt strategies. GOAL MET 05/07/24 3) improved L ground crew lines person strength to 40# and pinch to 10# with L thumb/wrist pain < 1/10. progressing, continue 4)??Pt to be fit with functional bracing (for L CMC, wrist, if needed) and use adaptive strategies to protect joint integrity to support less pain with ADL. progressing, continue Treatment Plan Treatment Plan Evaluation,Edema Control,Joint Mobilization,Manual Therapy, Splinting,Therapeutic Exercise ,Therapeutic Activities,Self Care/Home Management,Education Expected Frequency 1-2x Week Expected Duration 8-10 Weeks Occupational Therapy Billing Units Treatment Minutes Timed Treatment Minutes 33 Total Treatment Minutes 33 Billing Units Manual Therapy 2 Certification Statement Certification Statement I Certify That: Therapy Services Provided, Therapy Plan Established, Therapy Plan Reviewed
== END 2024-05-28 11:26 | disposition home or self-care (01) ==
PROVIDERS: PCP Family Medicine; Visit Provider Physician Assistant Surgical
DX: S52.502A Unspecified fracture of the lower end of left radius, initial encounter for closed fracture (principal); M25.532 Pain in left wrist; M25.60 Stiffness of unspecified joint, not elsewhere classified; R53.1 Weakness; Z51.89 Encounter for other specified aftercare
CPT/HCPCS: 97110; 97140; 97165; 97535; X5282

== ENCOUNTER 2024-07-18 13:00 | Outpatient (RCR) | payer MEDICARE, BC, SELFPAY ==
--- NOTE | 2024-06-20 12:19 | OT.OPOE ---
OT Outpatient Ortho Eval OT Outpatient Ortho Eval* Start: 06/20/24 07:54 Freq: Status: Active Protocol: Document 06/20/24 07:54 JASSI (Rec: 06/20/24 12:11 JASSI [id number]) E-signed By Bette Zepeda, OTR/L, CLT OT OP Ortho Eval Details Complexity Complexity Low Insurance Information Insurance Information Blue Cross/Blue Shield, Medicare B Outpatient History/Precautions Current Condition/Medical Diagnosis Referring Provider Dr. Ritchie Barton Medical Diagnoses M18.0 - Bilateral primary osteoarthritis of first carpometacarpal joints Treatment Diagnosis Pain in L thumb, M79. 645 Pain in R thumb, M79. 644 Thumb Joint stiffness, M25. 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 12 Breast lesion (Acute) N64.9 Osteoporosis (Acute) M81.0 Ductal carcinoma of left breast (Acute) C50.912 Depression- F32.A - Depression , unspecified Raynaud phenomenon- I73.00 - Raynaud's syndrome without gangrene Adenomatous colon polyp-D12.6 - Benign neoplasm of colon, unspecified Chronic mid back pain-M54.9 - Dorsalgia, unspecified Rosacea- L71.9 - Rosacea, unspecified (ICD-10) Osteoporosis- M81.0 - Age- related osteoporosis without current pathological fracture (ICD-10) Surgical History: History of open reduction and internal fixation (ORIF) procedure (03/02/24) Z98.890 - Other specified postprocedural states (ICD-10) History of tonsillectomy Z90.89 - Acquired absence of other organs (ICD-10) History of dilation and curettage Z98.890 - Other specified postprocedural states (ICD-10) Corneal transplant status Z94.7 - Corneal transplant status (ICD-10) H/O cataract extraction Z98.49 - Cataract extraction status, unspecified eye (ICD- 10) H/O left mastectomy Z90.12 - Acquired absence of left breast and nipple (ICD-10 ) Medical/Functional History Medical History Reviewed Yes Prior Level of Function/Mobility Patient lives with spouse in a 3 story home in [place]. 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 Enjoys hiking, reading, watching shows. Fitness at [facility]; normally does aquatic exercise and circuit training classes. 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 Recommendation was made for conservative treatment consisting of CMC braces and possible intra-articular corticosteroid injections. Patient was provided with a CMC brace for her left hand but declined injections at this appointment. Ortho wrote order for skilled Occupational Therapy for her bilateral thumb CMC arthritis. Of note: patient is 3 months status post left distal radius ORIF ( 03/02/24). She continues to experience occasional numbness and tingling in the fingers of her hand, which is also new since her injury. She is otherwise doing well. She denies any wrist pain is states that her range of motion has been improving since participating in therapy and doing her home exercises for ROM. Patient still has a thick cord from her scar on the L romero side of the wrist . Pain Assessment Pain Pain Yes Hand Pinch/Duck Bill Operator Strength Hand Pinch/Duck Bill Operator Strength Hand Pinch/Duck Bill Operator Strength Left Hand,Right Hand Left Hand Duck Bill Operator Strength Position 1 in Elbow 42 Flexion (lbs) Duck Bill Operator Strength Position 2 in Elbow 42 Extension (lbs) Lateral Pinch Strength (lbs) 9 Three Point Pinch (lbs) 10 Tip Pinch Strength (lbs) 8 Right Hand Duck Bill Operator Strength Position 1 in Elbow 55 Flexion (lbs) Duck Bill Operator Strength Position 2 in Elbow 60 Extension (lbs) Lateral Pinch Strength (lbs) 12 Three Point Pinch (lbs) 14 Tip Pinch Strength (lbs) 10 OT Objective Data Hand Hand Dominance Right Hand Function L Hand: L CMC squaring, heberden's nodes at L IP, tender at MP. Additional Information Objective Additional Information IMAGING: AP, lateral common oblique x- rays of the left wrist performed in clinic today reviewed. These demonstrate a healed distal radius fracture . Ulnar styloid fracture line remains visible. Moderate degenerative changes of the 1st CMC joint. Distal radius hardware is in place with no evidence of loosening or other complications. OT Problems Problems Problems Decreased Strength,Decreased Range of Motion,Decreased Dexterity,Pain,Decreased Coordination,Sensory Sensitivity,Lifting,Gripping, Pinching Problems Comments QUICK DASH 16 points on EVAL 06/20/24 Other Problems Opening Containers Patient Potential Good Assessment Assessment Assessment 74 year old female was seen by Ortho provider on 05/29/24 for treatment of her bilateral CMC arthritis. Recommendation was made for conservative treatment consisting of CMC braces and possible intra-articular corticosteroid injections. Patient was provided with a CMC brace for her left hand but declined injections at this appointment. Ortho wrote order for skilled Occupational Therapy for her bilateral thumb CMC arthritis. Of note: patient is 3 months status post left distal radius ORIF ( 03/02/24). She continues to experience occasional numbness and tingling in the fingers of her hand, which is also new since her injury. She is otherwise doing well. She denies any wrist pain is states that her range of motion has been improving since participating in therapy and doing her home exercises for ROM. Patient still has a thick cord from her scar on the L romero side of the wrist . PLAN: treat pain symptoms with the use of modalities as indicated, manual therapy for progressing AROM, development of an individualized HEP, patient education on the progression of treatment and activity modifications for arthritis. Occupational Therapy Treatment Plan - OP Potential Rehabilitation Potential Good Barriers Barriers to goal attainment Bone density changes, OA. Set Goals Goals Set with Patient Yes Goals Goals 1. After 3 treatment sessions, patient will be able to verbalize 6 adaptive strategies to protect joint integrity to have less pain with ADL/IADL & leisure activities. 2. In 8 weeks, pt will demonstrate: 1) Decreased pain to <2/10 80% of the time with sustained gripping & carrying tasks (ex: holding a coffee cup, carrying in groceries in the house, holding open a book ). 3. Patient will graduate from Skilled Therapy when she demonstrates [place] with customized HEP and goals in POC are met. 4. In order to show improvement in hand function, patient will reduce score on the Quick Dash from 16 points to 14 points. Target Date 12 weeks Treatment Plan Treatment Plan Evaluation,Joint Mobilization, Manual Therapy,Ultrasound, Therapeutic Exercise, Therapeutic Activities,Self Care/Home Management,Education Expected Frequency 1-2x Week Expected Duration 12 weeks Home Program Home Program Home Program Initiated Home Program Specifics CMC Joint Arthritis HEP 1. Rest the little finger side of your hand on a flat surface. Gently bend the thumb towards the little finger and slowly lift back up to straight. 2. Move your thumb into the side of your hand, in line with your index finger. Spread your thumb as far away from your hand as possible, staying in line with the index finger . Move your thumb back towards your palm. 3. Resting your palm on a flat surface, spread your thumb out as far as possible, away from your palm. Think about the movement coming from the base of your thumb by the wrist. Don?t try to overextend the other joints of your thumb. 4. Gently straighten all your fingers into a full stretch, and then gently make a fist. Strengthening Exercises The following exercises are designed to strengthen the small muscles that support and move your thumb: 5. With your thumb and fingers lightly gripping a tennis ball, gently squeeze against the ball and relax. 6. Still using a tennis ball, keep your thumb resting on the ball in a stable position. Lift your index and middle fingers away from the ball. Gently squeeze your thumb against the ball and relax. 7. Resting the hand on a tennis ball, place an elastic band round your fingers as shown. Straighten your index finger and then move it sideways, away from your middle finger. 8. Make a loose fist; place an elastic band around your fingers and thumb, keeping your palm on a flat surface. Keeping the tip joint of your thumb bent, slide your thumb away from your hand keeping it in contact with the table. Return your hand to a resting position. Certification Certification Statement I Certify That: Therapy Services Provided, Therapy Plan Established, Therapy Plan Reviewed Certification Information Clinic ID # [id number] Initial Certification Date 06/20/24 Recertification Due Date 09/18/24 Provider Signature Required Yes Provider Signature Shows Agreement With POC & Medical Necessity Physician NPI Number Write NPI# Here Physician Comment/Change Comment or Changes Physician Signature & Date Requested Please Sign/Date Here
== END 2024-07-18 13:36 | disposition home or self-care (01) ==
PROVIDERS: PCP Family Medicine; Visit Provider Orthopaedic Surgery
DX: M18.0 Bilateral primary osteoarthritis of first carpometacarpal joints (principal); M79.645 Pain in left finger(s); M79.644 Pain in right finger(s); M25.649 Stiffness of unspecified hand, not elsewhere classified; Z51.89 Encounter for other specified aftercare
CPT/HCPCS: 97110; 97140; 97165; X5282

== ENCOUNTER 2024-08-28 13:00 | Outpatient (RCR) | payer MEDICARE, BC, SELFPAY ==
--- NOTE | 2024-08-22 15:43 | ONC.NURNOTE ---
Patient called to discuss medication concerns. She has been on Lexapro but has been struggling with weight gain/binge eating associated with it.? Her PCP recommended Bupropion or Fluoxetine but both have drug interactions with Tamoxifen.? She wants to know what Dr. Hdez knows about these interactions and what her thoughts are.?Patient informed that both of these medications lessen the effectiveness of Tamoxifen and since she is already on a low dose of Tamoxifen, we recommend that she does not take either of these medications while she is on the Tamoxifen. Patient verbalizes understanding.
--- NOTE | 2024-09-13 15:02 | ONC.NURNOTE ---
Call to patient for an update on her condition. Patient has elected to continue Tamoxifen and discontinue her anti-depressant medications. She is working closely with a therapist and feels confident with her decision. She will update us with any changes.
== END 2024-12-15 23:59 | disposition home or self-care (01) ==
LOC: CCIC 13:00
PROVIDERS: PCP Family Medicine; Visit Provider Internal Medicine Hematology & Oncology
DX: C50.912 Malignant neoplasm of unspecified site of left female breast (principal); M81.0 Age-related osteoporosis without current pathological fracture; L98.9 Disorder of the skin and subcutaneous tissue, unspecified
CPT/HCPCS: 99214; 99215; G0463